=== PATIENT | male | born 1945 | race Caucasian/White ===

== ENCOUNTER 2019-10-23 07:20 | Day surgery (SDC) | payer OTHER ==
[2019-10-23] MEDS: Polymyxin B/Trimethoprim 10 ML Bottle EYERT SCH ×4 (07:35→09:46)
[2019-10-23] MEDS: Phenylephrine 2.5% Ophth Soln 2 ML Bot EYERT SCH ×6 (07:41→09:25)
[2019-10-23] MEDS: Tropicamide 1% Ophth Soln 15 ML Bottle EYERT SCH ×4 (07:46→08:49)
[2019-10-23] MEDS: Brimonidine 0.2% Ophth Soln 5 ML Bottle EYERT SCH ×4 (07:51→09:46)
--- NOTE | 2019-10-23 07:55 | PCM.PREANE ---
Preanesthetic Assessment - Procedure Proposed Procedure: right cataract - Anesthesia/Transfusion/Family Hx Anesthesia History: Prior Anesthesia Without Reaction Family History of Anesthesia Reaction: No - Review of Systems General: No Symptoms Pulmonary: No Symptoms Cardiovascular: Other (stent 3-4 years ago) Gastrointestinal: No Symptoms Neurological: No Symptoms Other: Reports: Anxiety - Physical Assessment NPO Status Date: 10/22/19 NPO Status Time: 18:00 Vital Signs: 160/73 52 98% 98.1 Height: 5 ft 8 in Weight: 83.915 kg ASA Class: 3 Mental Status: Alert & Oriented x3 Airway Class: Mallampati = 1 Dentition: Reports: Normal Dentition Thyro-Mental Finger Breadths: 3 Mouth Opening Finger Breadths: 3 ROM/Head Extension: Full Lungs: Clear to Auscultation, Normal Respiratory Effort Cardiovascular: Regular Rate, Regular Rhythm - Allergies Allergies/Adverse Reactions: Allergies Allergy/AdvReac Type Severity Reaction Status Date / Time brimonidine Allergy unknown Verified 10/19/19 13:46 dorzolamide Allergy unknown Verified 10/19/19 13:46 enoxaparin [From Lovenox] Allergy unknown Verified 10/19/19 13:46 - Blood Blood Available: No - Acknowledgements Anesthesia Type Planned: MAC Pt an Appropriate Candidate for the Planned Anesthesia: Yes Alternatives and Risks of Anesthesia Discussed w Pt/Guardian: Yes Pt/Guardian Understands and Agrees with Anesthesia Plan: Yes PreAnesthesia Questionnaire Cardiovascular History: Reports: High Cholesterol, Hypertension, Stents Gastrointestinal History: Reports: GERD Psychiatric History: Reports: Anxiety - Past Surgical History Cardiovascular Surgical History: Reports: Coronary Artery Stent - SUBSTANCE USE Smoking Status *Q: Former Smoker Tobacco Use Within Last Twelve Months: No Second Hand Smoke Exposure: No Recreational Drug Use History: No - CURRENT (IN HOUSE) MEDS Current Meds: Current Medications Brimonidine Tartrate (Alphagan 0.2% Ophth Soln) 0 ml EYERT ASDIRECTED VITO Stop: 10/23/19 23:00 Cefuroxime Sodium (Zinacef) 0 mg EYERT ASDIRECTED VITO Stop: 10/23/19 18:00 Lidocaine HCl (Xylocaine-Mpf 1%) 0 ml INJECT ASDIRECTED VITO Stop: 10/23/19 18:00 Phenylephrine HCl (Sumit-Synephrine 2.5% Ophth Soln) 0 ml EYERT ASDIRECTED VITO Stop: 10/23/19 18:00 Last Admin: 10/23/19 07:41 Dose: 1 drop Documented by: Pilocarpine HCl (Pilocar 4% Ophth Soln) 0 ml EYERT ASDIRECTED VITO Stop: 10/23/19 18:00 Polymyxin/Trimethoprim Sulfate (Polytrim Ophth Soln) 0 ml EYERT ASDIRECTED VITO Stop: 10/23/19 18:00 Last Admin: 10/23/19 07:35 Dose: 1 drop Documented by: Tetracaine HCl (Tetracaine 0.5% Steri-Unit Jenna) 0 ml EYEBOTH ASDIRECTED VITO Stop: 10/23/19 18:00 Tropicamide (Mydriacyl 1% Ophth Soln) 0 ml EYERT ASDIRECTED VITO Stop: 10/23/19 18:00 Last Admin: 10/23/19 07:46 Dose: 1 drop Documented by:
[2019-10-23] MEDS: Lidocaine 1% PF 2 ML SDV INJECT SCH ×2 (09:10→09:33)
[2019-10-23] MEDS: Tetracaine HCl/PF 0.5% 4 ML Bottle EYEBOTH SCH ×3 (09:10→09:33)
[2019-10-23] MEDS: Pilocarpine 4% Ophth Soln 15 ML Bot EYERT SCH ×2 (09:11→09:46)
[2019-10-23] MEDS: Cefuroxime 10 MG/ML SYRINGE EYERT SCH ×2 (09:11→09:46)
--- NOTE | 2019-10-23 09:49 | PCM48HPAN ---
Post Anesthesia Note - EVALUATION WITHIN 48HRS OF ANESTHETIC Vital Signs in Normal Range: Yes Patient Participated in Evaluation: Yes Respiratory Function Stable: Yes Airway Patent: Yes Cardiovascular Function Stable: Yes Hydration Status Stable: Yes Pain Control Satisfactory: Yes Nausea and Vomiting Control Satisfactory: Yes Mental Status Recovered: Yes Vital Signs: Last Vital Signs Temp 98.5 F 10/23/19 07:15 Pulse 52 L 10/23/19 07:15 Resp 16 10/23/19 07:15 BP 160/73 H 10/23/19 07:15 Pulse Ox 98 10/23/19 07:15 0949 136/77 20 97% 56
== END 2019-10-23 10:00 | disposition home or self-care (01) ==
LOC: JD.SDS 07:20
PROVIDERS: ATTEND Ophthalmology
DX: H25.813 Combined forms of age-related cataract, bilateral (principal); H40.053 Ocular hypertension, bilateral; I10 Essential (primary) hypertension; E78.00 Pure hypercholesterolemia, unspecified; Z87.891 Personal history of nicotine dependence; Z88.8 Allergy status to other drugs, medicaments and biological substances; Z79.899 Other long term (current) drug therapy
CPT/HCPCS: 66984; C1780; J0697; J2001